=== PATIENT | female | born 1950 | race Caucasian/White ===

== ENCOUNTER 2019-02-14 11:32 | Emergency (ER) | payer OTHER ==
[~2019-02-14] VITALS: Ht 157.5 cm; Wt 67.1 kg
[2019-02-14] MEDS ORDERED: BYSTOLIC10 MG PO (11:58)
[2019-02-14] MEDS ORDERED: MINIVELLE1 EACH TOP (11:59)
[2019-02-14] MEDS ORDERED: ARMOUR THYROID60 M1 PO (11:59)
[2019-02-14] MEDS ORDERED: PROGESTERONE100 MG PO (11:59)
== END 2019-02-14 15:09 | disposition home or self-care (01) ==
LOC: ER 11:32
DX: S80.212A Abrasion, left knee, initial encounter (principal); S80.211A Abrasion, right knee, initial encounter; S50.02XA Contusion of left elbow, initial encounter; S30.0XXA Contusion of lower back and pelvis, initial encounter; W18.39XA Other fall on same level, initial encounter; Y93.01 Activity, walking, marching and hiking; Y92.488 Other paved roadways as the place of occurrence of the external cause; Y99.8 Other external cause status